=== PATIENT | female | born 1960 | race Caucasian/White ===

== ENCOUNTER 2017-10-09 09:47 | Day surgery (SDC) | payer BC ==
[~2017-10-09 09:47] MED LIST: Lactated Ringers 1,000 ML IV SCH; Sodium Chloride 0.9% 10 ML Syringe FLUSH PRN; ceFAZolin 1 GM in Premix Bag 1 BAG IV ONE
[2017-10-09] MEDS ORDERED: fentaNYL 100 MCG/2 ML SDV IV ONE (09:48)
[2017-10-09] MEDS ORDERED: Dexamethasone 4 MG/ML SDV IV ONE (09:48)
[2017-10-09] MEDS ORDERED: Lidocaine 1% 30 ML SDV INJECT ONE ×3 (09:48→14:30)
[2017-10-09] MEDS ORDERED: Ondansetron 4 MG/2 ML SDV IV ONE (09:48)
[2017-10-09] MEDS ORDERED: Propofol 200 MG/20 ML SDV IV ONE (09:48)
[2017-10-09] MEDS ORDERED: Bupivacaine 0.5% 30 ML SDV INJECT ONE ×3 (09:48→14:30)
[2017-10-09] MEDS ORDERED: Midazolam 1 MG/ML 2 ML SDV IV ONE (09:48)
[2017-10-09] MEDS ORDERED: Ketorolac 30 MG/ML SDV IVPUSH ONE (09:48)
[2017-10-09] MEDS ORDERED: Bupivacaine 0.5% 30 ML SDV ONE (11:54)
[2017-10-09] MEDS ORDERED: Lidocaine 1% 30 ML SDV ONE (11:54)
--- NOTE | 2017-10-09 17:21 | OR ---
DATE: 10/09/2017 PREOPERATIVE DIAGNOSIS: Left foot painful bunion. POSTOPERATIVE DIAGNOSIS: Left foot painful bunion. PROCEDURE PERFORMED: Left foot first metatarsal cuneiform joint arthrodesis/Lapidus bunionectomy. ANESTHESIA: General LMA with preoperative local block of 10 mL 1:1 mixture of 1% lidocaine plain and 0.5% Marcaine plain. TOURNIQUET TIME: 112 minutes, pneumatic ankle tourniquet. ESTIMATED BLOOD LOSS: Minimal. SPECIMEN: None. COMPLICATIONS: None. INDICATIONS: Izabel is a 57-year-old female with a painful left foot bunion. I have seen her in the past; and we have tried different conservative options including wider shoes, custom orthotics, toe spacers, and padding with no relief. She has a lot of pain to that bunion and also to the joint of the first metatarsal cuneiform. This has been progressively worsening over the last couple of years, and she would like surgical correction on that at this point. X-rays of the left foot reveal significant bunion deformity present at the first metatarsal with an intermetatarsal angle of approximately 14 degrees; however, she does have a metatarsus adductus component present which makes the true IM angle higher a significant amount, her hallux abductus angle is 36 degrees. She does have a slightly elevated first metatarsal atavistic cuneiform. The patient voiced good understanding of the proposed procedure and possible complications and elects to have surgery at this time. DESCRIPTION OF THE PROCEDURE: The patient was taken to the operating room lying in the supine position. After adequate anesthesia induction as described above, the left foot was prepped and draped in the usual sterile fashion. A pneumatic ankle tourniquet was inflated to 225 mmHg. Attention was then directed to the medial foot overlying the first metatarsal, where an approximately 6 cm curvilinear incision was made. Sharp and blunt dissection was performed down to the level of the first metatarsophalangeal joint and the first metatarsal cuneiform joint, being careful to retract all neurovascular structures. An inverted L-capsulotomy was made at the first MTPJ. The joint capsule was reflected to expose the first metatarsal. A medial eminence was noted and was resected with a sagittal saw. The articular surface of the first MTPJ, otherwise, appeared healthy in appearance except for a defect on the plantar lateral aspect, which I did drill with a 0.062 inch K-wire. The attention was directed to the first metatarsal cuneiform joint where a capsulotomy was made, and the metatarsal cuneiform joint was exposed. Articular cartilage was resected from the first metatarsal cuneiform joint via curettage. A 0.062 inch K-wire was used to fenestrate, and an osteotome was also used to break up the subchondral bone. A bone rasp was used at the lateral aspect of this joint at the atavistic cuneiform. K-wires from the 4.0 cannulated screw set were then used as temporary fixation, and the bunion was reduced. The osteotomy site was noted to have good [id number] contact with good reduction of the first intermetatarsal angle and also good positioning on the lateral view. This was verified using fluoroscopy throughout the procedure. Two partially threaded crossing 4-0 cannulated screws were then inserted across the osteotomy site. I did have to change my screw position slightly as one of the screws would not bite, so it is slightly different than the usual screw fixation I use, however, it had good compression. The screws did bite well; and they were noted to be very stable with varus, valgus, and axial force applied to the osteotomy site. The area was then irrigated with copious amounts of sterile saline. A medial capsulorrhaphy was performed, and medial capsular closure was completed with 3-0 Vicryl, dorsal capsule closure was completed with 3-0 Vicryl, and skin closure was completed with 4-0 nylon. The area was then dressed with Xeroform to the incision site, fluffs, Webril, and a well-padded L and U splint with the foot in neutral position. The patient tolerated the procedure and anesthesia well and left the operating room for recovery with vital signs stable in good condition with vascular status intact to the left foot as noted by immediate hyperemia to all digits upon deflation of the ankle tourniquet. The patient was then discharged home when she met hospital discharge requirements. [facility] /[id number]
== END 2017-10-09 16:18 | disposition home or self-care (01) ==
LOC: DL.SDS 09:47
PROVIDERS: ATTEND Podiatrist
DX: M21.612 Bunion of left foot (principal)
CPT/HCPCS: 28297; J0690; J1100; J1885; J2250; J2405; J2704; J3010; J7120